=== PATIENT | male | born 1940 | race Caucasian/White ===

== ENCOUNTER 2024-05-26 17:17 | Inpatient (IN) | payer MEDICARE ==
--- NOTE | 2024-05-26 17:32 | ED ---
General Adult HPI - General Chief complaint: Neuro Symptoms/Deficit Stated complaint: stroke like symptoms Time Seen by Provider: 05/26/24 17:20 Source: patient, EMS, RN notes reviewed Mode of arrival: EMS Limitations: no limitations - History of Present Illness Initial comments: Patient is an 83-year-old male presenting to the emergency department with concerns for left-sided weakness. Onset of symptoms was 5 PM yesterday. Patient notices left leg dragging and is fallen approximately 5 or 6 times. Patient also noticed that his left arm is not quite doing what he wanted it to. No head injury. No loss of consciousness. No neck or back pain. No loss of sensation. No confusion or speech difficulty. - Related Data Home Medications Medication Instructions Recorded Confirmed No Known Home Medications 05/26/24 05/26/24 Allergies Allergy/AdvReac Type Severity Reaction Status Date / Time No Known Allergies Allergy Verified 05/26/24 18:51 Review of Systems ROS Statement: Those systems with pertinent positive or pertinent negative responses have been documented in the HPI. ROS Other: All systems not noted in ROS Statement are negative. Constitutional: Denies: fever Eyes: Denies: eye pain ENT: Denies: ear pain Respiratory: Denies: cough Cardiovascular: Denies: chest pain Gastrointestinal: Denies: abdominal pain Musculoskeletal: Denies: back pain Neurological: Reports: as per HPI, weakness. Denies: headache Past Medical History Past Medical History: No Reported History History of Any Multi-Drug Resistant Organisms: None Reported Past Surgical History: No Surgical Hx Reported Past Psychological History: No Psychological Hx Reported Smoking Status: Current every day smoker Past Alcohol Use History: None Reported Past Drug Use History: None Reported General Exam Limitations: no limitations General appearance: alert, in no apparent distress Head exam: Present: atraumatic Eye exam: Present: normal appearance, PERRL, EOMI ENT exam: Present: normal oropharynx Neck exam: Present: normal inspection Respiratory exam: Present: normal lung sounds bilaterally Cardiovascular Exam: Present: regular rate, normal rhythm GI/Abdominal exam: Present: soft. Absent: tenderness Extremities exam: Present: normal inspection Neurological exam: Present: alert, oriented X3, CN II-XII intact Expanded Neurological exam: Present: protecting the airway Patient oriented to: Present: person, place, time Speech: Present: fluid speech Cranial nerves: EOM's Intact: Normal Sensory exam: Upper Extremity Light Touch: Normal, Lower Extremity Light Touch: Normal Motor strength exam: RUE: 5, LUE: 4, RLE: 5, LLE: 4 Eye Response: (4) open spontaneously Motor Response: (6) obeys commands Verbal Response: (5) oriented Psychiatric exam: Present: normal affect, normal mood Skin exam: Present: abrasion Course Vital Signs 05/26/24 05/26/24 05/26/24 17:18 17:30 18:22 Temperature 98.4 F Pulse Rate 61 98 Respiratory 16 16 Rate Blood Pressure 188/114 198/84 160/68 O2 Sat by Pulse 98 97 Oximetry EKG Findings - EKG Results: EKG: interpreted by ERMD (Appearance of sinus rhythm with frequent PVCs. Septal Q waves.), normal axis, normal ST/T Medical Decision Making - Medical Decision Making Recommended tetanus however patient refuses. Consider CTA however patient is not a candidate for protocol secondary to symptoms greater than 24 hours Was pt. sent in by a medical professional or institution (, PA, BUSINESS MANAGEMENT PROFESSOR, urgent care, hospital, or halfway...) When possible be specific @ -No Did you speak to anyone other than the patient for history (EMS, parent, family, police, friend...)? What history was obtained from this source @ -No Did you review nursing and triage notes (agree or disagree)? Why? @ -I reviewed and agree with nursing and triage notes Were old charts reviewed (outside hosp., previous admission, EMS record, old EKG, old radiological studies, urgent care reports/EKG's, halfway records)? Report findings @ -No old charts were reviewed Differential Diagnosis (chest pain, altered mental status, abdominal pain women, abdominal pain men, vaginal bleeding, weakness, fever, dyspnea, syncope, headache, dizziness, GI bleed, back pain, seizure, CVA, palpatations, mental health, musculoskeletal)? @ -Differential Weakness: Hypoglycemia, shock, sepsis, hyponatremia, anemia, infection, NE, ETOH, adverse medicine reaction, overdose, stroke, this is not meant to be an all-inclusive list. EKG interpreted by me (3pts min.). @ -As above X-rays interpreted by me (1pt min.). @ -Chest x-ray shows no acute process CT interpreted by me (1pt min.). @ -CT scan of the brain without acute abnormality U/S interpreted by me (1pt. min.). @ -None done What testing was considered but not performed or refused? (CT, X-rays, U/S, labs)? Why? @ -None What meds were considered but not given or refused? Why? @ -Patient not a candidate for tenecteplase secondary to onset greater than 4.5 hours Did you discuss the management of the patient with other professionals (professionals i.e. , PA, BUSINESS MANAGEMENT PROFESSOR, lab, RT, psych nurse, pediatric social worker, maintenance and engineering manager, teacher, operations officer trust department, correctional case records supervisor)? Give summary @ -Case discussed with Dr. Qiu who will admit covering hospital call Was smoking cessation discussed for >3mins.? @ -No Was critical care preformed (if so, how long)? @ -No Were there social determinants of health that impacted care today? How? (Homelessness, low income, unemployed, alcoholism, drug addiction, transportation, low edu. Level, literacy, decrease access to med. care, [facility], rehab)? @ -No Was there de-escalation of care discussed even if they declined (Discuss DNR or withdrawal of care, Hospice)? DNR status @ -No What co-morbidities impacted this encounter? (DM, HTN, Smoking, COPD, CAD, Cancer, CVA, ARF, Chemo, Hep., AIDS, mental health diagnosis, sleep apnea, morbid obesity)? @ -None Was patient admitted / discharged? Hospital course, mention meds given and route, prescriptions, significant lab abnormalities, going to OR and other pertinent info. @ -Patient presents with left arm and leg weakness for [address] scan unremarkable. Concern for stroke. Patient will be admitted with neurology cons ult. Patient reevaluated. Patient and family updated. Admission orders written. Undiagnosed new problem with uncertain prognosis? @ -No Drug Therapy requiring intensive monitoring for toxicity (Heparin, Nitro, Insulin, Cardizem)? @ -No Were any procedures done? @ -No Diagnosis/symptom? @ -CVA Acute, or Chronic, or Acute on Chronic? @ -Acute Uncomplicated (without systemic symptoms) or Complicated (systemic symptoms)? @ -Default Side effects of treatment? @ -No Exacerbation, Progression, or Severe Exacerbation? @ -No Poses a threat to life or bodily function? How? (Chest pain, USA, NE, pneumonia, PE, COPD, DKA, ARF, appy, cholecystitis, CVA, Diverticulitis, Homicidal, Suicidal, threat to staff... and all critical care pts) @ -Threat to neurological function - Lab Data Result diagrams: 05/26/24 17:40 05/26/24 17:40 Lab Results 05/26/24 05/26/24 05/26/24 Range/Units 17:40 17:40 17:40 WBC 14.21 H (4.50-10.00) 10*3/uL RBC 4.52 (4.40-5.60) 10*6/uL Hgb 13.7 (13.0-17.0) g/dL Hct 41.1 (39.6-50.0) % MCV 90.9 (80.0-97.0) fL MCH 30.3 (27.0-32.0) pg MCHC 33.3 (32.0-37.0) g/dL Plt Count 287 (140-440) 10*3/uL MPV 9.3 L (9.5-12.2) fL Immature Gran % (Auto) 0.3 % Neutrophils % 76.8 % Lymphocytes % 14.2 % Monocytes % 8.0 % Eosinophils % 0.6 % Basophils % 0.1 % Immature Gran # 0.04 (0.00-0.04) 10*3/uL Neutrophils # 10.91 H (1.80-7.70) 10*3/uL Lymphocytes # 2.02 (0.90-5.00) 10*3/uL Monocytes # 1.14 H (0.20-1.00) 10*3/uL Eosinophils # 0.08 (0.04-0.35) 10*3/uL Basophils # 0.02 (0.00-0.10) 10*3/uL PT 10.3 (10.0-12.5) sec INR 0.9 (<1.2) APTT 23.2 (22.0-30.0) sec Sodium 136 L (137-145) mmol/L Potassium 4.5 (3.5-5.1) mmol/L Chloride 105 (98-107) mmol/L Carbon Dioxide 24 (22-30) mmol/L Anion Gap 7 mmol/L BUN 16 (9-20) mg/dL Creatinine 1.31 H (0.66-1.25) mg/dL Est GFR (CKD-EPI)AfAm 59 (>60 ml/min/1.73 sqM) Est GFR (CKD-EPI)NonAf 51 (>60 ml/min/1.73 sqM) Glucose 147 H (74-99) mg/dL Calcium 9.4 (8.4-10.2) mg/dL Total Bilirubin 0.7 (0.2-1.3) mg/dL AST 23 (17-59) U/L ALT 13 (4-49) U/L Alkaline Phosphatase 102 (38-126) U/L Creatine Kinase 123 (55-170) U/L Total Protein 7.2 (6.3-8.2) g/dL Albumin 4.2 (3.5-5.0) g/dL Disposition Clinical Impression: Cerebrovascular accident (CVA) Disposition: ADMITTED IP TO THIS HOSP Is patient prescribed a controlled substance at d/c from ED?: No Referrals: None,Stated [Primary Care Provider] - 1-2 days Time of Disposition: 19:39
[2024-05-26 17:46] LABS: Basophils # (A) 0.02 10*3/uL (0.00-0.10); Basophils % (A) 0.1 %; Eosinophils # (A) 0.08 10*3/uL (0.04-0.35); Eosinophils % (A) 0.6 %; HCT 41.1 % (39.6-50.0); HGB 13.7 g/dL (13.0-17.0); Lymphocytes # (A) 2.02 10*3/uL (0.90-5.00); Lymphocytes % (A) 14.2 %; MCH 30.3 pg (27.0-32.0); MCHC 33.3 g/dL (32.0-37.0); MCV 90.9 fL (80.0-97.0); Mean Platelet Volume 9.3 fL (9.5-12.2); Monocytes # (A) 1.14 10*3/uL (0.20-1.00); Neutrophils # (A) 10.91 10*3/uL (1.80-7.70); Neutrophils % (A) 76.8 %; Platelet Count 287 10*3/uL (140-440); RBC 4.52 10*6/uL (4.40-5.60); RDW 14.4 % (11.5-14.5); WBC 14.21 10*3/uL (4.50-10.00)
[2024-05-26 17:59] LABS: ALT 13 U/L (4-49); AST 23 U/L (17-59); African American GFR (CKD) 59 (>60 ml/min/1.73 sqM); Albumin 4.2 g/dL (3.5-5.0); Alkaline Phosphatase 102 U/L (38-126); Anion Gap 7 mmol/L; Blood Urea Nitrogen 16 mg/dL (9-20); Calcium 9.4 mg/dL (8.4-10.2); Carbon Dioxide 24 mmol/L (22-30); Chloride 105 mmol/L (98-107); Creatine Kinase 123 U/L (55-170); Glucose 147 mg/dL (74-99); Non-African American GFR(CKD) 51 (>60 ml/min/1.73 sqM); Potassium 4.5 mmol/L (3.5-5.1); Sodium 136 mmol/L (137-145); Total Bilirubin 0.7 mg/dL (0.2-1.3); Total Protein 7.2 g/dL (6.3-8.2)
[2024-05-26 18:01] LABS: INR 0.9 (<1.2); Partial Thromboplastin Time 23.2 sec (22.0-30.0); Prothrombin Time 10.3 sec (10.0-12.5)
--- NOTE | 2024-05-26 18:04 | XR ---
EXAMINATION TYPE: XR chest 2V DATE OF EXAM: 05/26/2024 5:59 PM COMPARISON: None TECHNIQUE: XR chest 2V Frontal and lateral views of the chest. CLINICAL INDICATION:Male, 83 years old with history of altered mental status; FINDINGS: Lungs/Pleura: There is no evidence of pleural effusion, focal consolidation, or pneumothorax. Chroni c senescent parenchymal change. Pulmonary vascularity: Unremarkable. Heart/mediastinum: Cardiomediastinal silhouette is unremarkable. Atherosclerotic calcifications are seen in the aorta. Musculoskeletal: No acute osseous pathology. IMPRESSION: No acute cardiopulmonary disease/process. [facility], , 05/26/2024 6:01 PM
--- NOTE | 2024-05-26 18:14 | CT ---
EXAMINATION TYPE: CT brain wo con CT DLP: 1156.8 mGycm, Automated exposure control for dose reduction was used. DATE OF EXAM: 05/26/2024 6:07 PM COMPARISON: None. CLINICAL INDICATION:Male, 83 years old with history of Neuro deficit, acute, stroke suspected, weakne ss, ams TECHNIQUE: Brain: Multiple axial CT images of the brain were obtained without IV contrast. . Coronal and sagitta l reformats reviewed. FINDINGS: Brain: Extra-axial spaces: No abnormal extra-axial fluid collections. Ventricular system: Within normal limits Cerebral parenchyma: Cerebral atrophy. No acute intraparenchymal hemorrhage or mass effect. The brito -white junction is well differentiated. Scattered hypoattenuating areas are seen within the periventr icular white matter. Cerebellum: Unremarkable. Mass effect: No evidence of midline shift. Intracranial vasculature: Atherosclerotic calcifications of the intracranial vessels. Soft tissues: Normal. Calvarium/osseous structures: No depressed skull fracture. Incidental incomplete fusion posterior arc h of C1. Paranasal sinuses and mastoid air cells: The mastoid air cells are clear. Minimal mucosal thickening of the ethmoid sinuses. Aplasia of the right frontal sinus. The remaining paranasal sinuses are clear . Visualized orbits: Orbital contents are intact. IMPRESSION: 1. No acute intracranial process. 2. Nonspecific white matter changes, likely secondary to chronic small vessel ischemic disease. [facility], , 05/26/2024 6:12 PM
[2024-05-26] MEDS: SODIUM CHLORIDE 0.9% 1,000 ML IV SCH (20:23)
[2024-05-26] MEDS: ASPIRIN 325 MG TAB PO STA (20:28)
--- NOTE | 2024-05-26 21:49 | US ---
EXAMINATION TYPE: US carotid duplex BILAT DATE OF EXAM: 05/26/2024 COMPARISON: NONE CLINICAL INDICATION: Male, 83 years old with history of Stenosis; stroke like symptoms. Dizziness. TECHNIQUE: Grayscale, color Doppler and spectral Doppler evaluation of the bilateral carotid systems and vertebral arteries. Indirect Doppler criteria was utilized. FINDINGS: Boat Carpenter Mechanic notes: Patient unable to lay flat due to pain in neck EXAM MEASUREMENTS: RIGHT: Peak Systolic Velocity (PSV) cm/sec ----- Right CCA: 111 ----- Right ICA: 107.0 ----- Right ECA: 119.0 ICA/CCA ratio: 1.0 RIGHT: End Diastole cm/sec ----- Right CCA: 16.3 ----- Right ICA: 29.9 ----- Right ECA: 9.9 LEFT: Peak Systolic Velocity (PSV) cm/sec ----- Left CCA: 97.4 ----- Left ICA: 147 ----- Left ECA: 97.6 ICA/CCA ratio: 1.5 LEFT: End Diastole cm/sec ----- Left CCA: 19.5 ----- Left ICA: 39.3 ----- Left ECA: 2.46 VERTEBRALS (direction of flow): Right Vertebral: Antegrade Left Vertebral: Antegrade Rhythm: Arrhythmia MANAGER CASINO NOTES: slightly limited due to tortuous, deep diving vessels. Plaque seen within bilatera l bulbs slightly elevated velocities seen within the left ICA Color Doppler imaging shows patency with blood flow throughout the carotid artery. Spectral waveforms are within normal limits. IMPRESSION: Scattered mild to moderate atherosclerotic changes at the bilateral bifurcations. Slightly elevated v elocities left ICA but without any hemodynamically significant internal carotid artery stenosis on ei ther side. Criteria for Assigning % of Stenosis / Diameter reduction (Estimation based on the indirect measurements of the internal carotid artery velocities (ICA PSV). 1. Normal (no stenosis)=ICA PSV < 180 cm/s: ratio < 2.0: ICA EDV<40 cm/s. 2. Less than 50% stenosis=ICA PSV < 180 cm/s: ratio < 2.0: ICA EDV<40 cm/s. 3. 50 to 69% stenosis=ICA PSV of 180 to 230 cm/s: ration 2.0 ? 4.0: ICA EDV 40-100 cm/s. PSV 125-180 cm/sec and ICA/CCA PSV Ratio ? 2.0 is also consistent with 50-69% stenosis 4. Greater than 70% stenosis to near occlusion= ICA PSV > 230 cm/s: ratio > 4.0: ICA EDV > 100 cm/s. 5. Near occlusion= ICA PSV velocities may be low or undetectable: variable ratio and ICA EDV. 6. Total occlusion=unable to detect flow. [facility], , 05/26/2024 9:47 PM
--- NOTE | 2024-05-27 01:09 | HP ---
HISTORY AND PHYSICAL HISTORY OF PRESENT ILLNESS: This is an 83-year-old white male, who comes to the emergency room with concerns of left-sided weakness. It started at 5:00 p.m. yesterday; both legs weak; he was dragging his left leg and falling 5 or 6 times and his left arm is not quite what it used to be also. Little bit weak. No confusion or speech abnormality. MEDICATIONS: Negative. ALLERGIES: Negative. REVIEW OF SYSTEMS: Otherwise 14-point review of systems negative. PAST MEDICAL HISTORY: None. SOCIAL HISTORY: Current everyday smoker. He had pneumonia recently about a month ago that he has been weak ever since. PHYSICAL EXAMINATION: GENERAL: No limitations. No acute distress. HEAD: Normocephalic, atraumatic. Pupils are equally, round, and reactive. NEUROLOGIC: Cranial nerves are intact. He has 4/5 strength in his left arm and his left leg. No tongue deviation. Wrinkling of the face is normal. He obeys commands. He is pleasant, and he is talkative in no acute distress. He can move his arm about 50% to 70% on his left side, same with the left leg. HEART: S1 and S2. He has PVCs on EKG with no ischemia. VITAL SIGNS: Blood pressure on admission was 188/114, O2 98, temp 98.4, pulse 61, respiratory rate 16. Consider CTA per the protocol. Carotid Doppler is negative. Echo is pending. White count 14.2 with a left shift. Possibly, he has pneumonia. He has wheezing in his lungs, [id number]. Sodium 136, potassium 4.5, BUN is 16, creatinine 1.31, glucose 147. Continue with current treatment. Prognosis is guarded. CTA of the chest for possible pneumonia. X-ray of the lumbar spine for leg weakness, ruling out stroke. Echo with bubble study is pending. MMODL / IJN: [id number] /
[2024-05-27 02:19] LABS: Appearance,Urine Clear (Clear); Bilirubin,Urine Negative (Negative); Blood,Urine Trace (Negative); Color,Urine Colorless; Glucose,Urine (UA) Negative (Negative); Ketones,Urine Negative (Negative); Leukocyte Esterase,Urine Negative (Negative); Nitrite,Urine Negative (Negative); PH, Urine 6.5 (5.0-8.0); Protein,Urine Negative (Negative); RBC,Urine 3 /hpf (0-5); Specific Gravity,Urine 1.008 (1.001-1.035); Urobilinogen,Urine <2.0 mg/dL (<2.0); WBC,Urine 1 /hpf (0-5)
--- NOTE | 2024-05-27 02:42 | CT ---
EXAM: CT Chest Without Intravenous Contrast CLINICAL HISTORY: ITS.REASON CT Reason: recent cap/wheezing TECHNIQUE: Axial computed tomography images of the chest without intravenous contrast. CTDI is 12.4 mGy and DLP is 527.5 mGy-cm. This CT exam was performed using one or more of the following dose reduction techniques: automated exposure control, adjustment of the mA and/or kV according to patient size, and/or use of iterative reconstruction technique. COMPARISON: No relevant prior studies available. FINDINGS: Lungs: Mild atelectasis at the lung bases. Pleural space: Unremarkable. No pneumothorax. No significant effusion. Heart: Unremarkable. No cardiomegaly. No significant pericardial effusion. No significant coronary artery calcifications. Bones/joints: Degenerative changes of the spine. No acute fracture. No dislocation. Soft tissues: Unremarkable. Vasculature: Atherosclerotic changes of the aorta. No thoracic aortic aneurysm. Lymph nodes: Unremarkable. No enlarged lymph nodes. IMPRESSION: No acute findings in the chest.
--- NOTE | 2024-05-27 07:35 | XR ---
EXAMINATION TYPE: XR lumbar spine 3V DATE OF EXAM: 05/27/2024 12:28 AM COMPARISON: None CLINICAL INDICATION: Male, 83 years old with history of leg weakness; PHH, pain FINDINGS: Hypertrophic facet arthropathy. There appears to be a grade 2 or nearly grade 2 anterolisthesis at L4 -L5. Facet arthropathy throughout. Degenerative disc disease with vacuum at L4-L5. Vertebral body hei ghts are preserved. IMPRESSION: 1. A grade 2 or nearly grade 2 anterolisthesis at L4-L5 may be due to hypertrophic facet arthropathy or underlying pars defects. 2. Moderate degenerative disc disease L4-L5. Facet arthropathy throughout. [facility], Workstation: [facility], 05/27/2024 7:32 AM
[2024-05-27 08:10] LABS: Chol/HDL Ratio 5.75 Ratio; LDL Cholesterol,Calculated 152.6 mg/dL (0.0-131.0)
[2024-05-27] MEDS: ASPIRIN 325 MG TAB PO SCH (10:23)
[2024-05-27 10:29] LABS: Basophils # (A) 0.02 10*3/uL (0.00-0.10); Basophils % (A) 0.1 %; Eosinophils # (A) 0.13 10*3/uL (0.04-0.35); Eosinophils % (A) 0.9 %; HCT 40.7 % (39.6-50.0); HGB 13.7 g/dL (13.0-17.0); Lymphocytes # (A) 2.37 10*3/uL (0.90-5.00); Lymphocytes % (A) 16.8 %; MCH 30.7 pg (27.0-32.0); MCHC 33.7 g/dL (32.0-37.0); MCV 91.3 fL (80.0-97.0); Mean Platelet Volume 9.2 fL (9.5-12.2); Monocytes # (A) 1.26 10*3/uL (0.20-1.00); Monocytes % (A) 8.9 %; Neutrophils # (A) 10.28 10*3/uL (1.80-7.70); Neutrophils % (A) 72.9 %; Platelet Count 297 10*3/uL (140-440); RBC 4.46 10*6/uL (4.40-5.60); RDW 14.3 % (11.5-14.5); WBC 14.11 10*3/uL (4.50-10.00)
[2024-05-27 10:52] LABS: ALT 12 U/L (4-49); AST 19 U/L (17-59); African American GFR (CKD) 66 (>60 ml/min/1.73 sqM); Albumin 3.5 g/dL (3.5-5.0); Albumin/Globulin Ratio 1.2; Alkaline Phosphatase 98 U/L (38-126); Anion Gap 5 mmol/L; Blood Urea Nitrogen 13 mg/dL (9-20); Calcium 9.3 mg/dL (8.4-10.2); Carbon Dioxide 25 mmol/L (22-30); Chloride 106 mmol/L (98-107); Globulin 2.9 g/dL; Glucose 118 mg/dL (74-99); Magnesium 1.8 mg/dL (1.6-2.3); Non-African American GFR(CKD) 57 (>60 ml/min/1.73 sqM); Potassium 4.4 mmol/L (3.5-5.1); Sodium 136 mmol/L (137-145); Total Bilirubin 0.9 mg/dL (0.2-1.3); Total Protein 6.4 g/dL (6.3-8.2)
--- NOTE | 2024-05-27 11:21 | P.CRDCN ---
History of Present Illness Consult date: 05/27/24 Reason for Consult (text): Arrhythmia History of present illness: This is an 83-year-old male patient with no previous cardiac history and does not follow with a business objects report developer. He has a past medical history of tobacco use and dependence. We have been asked to evaluate the patient for arrhythmia. Patient presented to the hospital because of his left foot weakness and he states he kept falling down and falling to the left. He also states his left hand was not working correctly for him. He denies previous history of a stroke. He denies chest pain or shortness of breath. He is a smoker of 1 pack/day. He denies alcohol use. Blood pressure 158/81, heart rate 64, pulse ox 97% on room air. Discussed smoking cessation with the patient. -EKG: Sinus rhythm with PVCs versus aberrant conduction -Chest x-ray: No acute process. -CT brain: No acute intracranial process. Nonspecific white matter changes secondary to chronic small vessel ischemic disease. -Carotid duplex: Scattered mild to moderate atherosclerotic changes without hemo dynamically significant WILLARD. -Lumbar spine. Grade 2 anterior listhesis L4-L5. Moderate degenerative disc disease L4-5. -CT chest: No acute findings. -Laboratory studies: WBC 14.1, hemoglobin 13.7, sodium 136, potassium 4.4, BUN 13 creatinine 1.19. Triglycerides 158, cholesterol 223, LDL 152. HDL 38. -Home cardiac medications: None Review Of Systems: At the time of my exam: CONSTITUTIONAL: Denies fever or chills. HEENT: Denies blurred vision, vision changes, or eye pain. Denies hemoptysis CARDIOVASCULAR: Denies chest pain. Denies orthopnea. Denies PND. Denies palpitations RESPIRATORY: Denies shortness of breath. GASTROINTESTINAL: Denies abdominal pain. Denies nausea or vomiting. HEMATOLOGIC: Denies bleeding disorders. GENITOURINARY: Denies any blood in urine. SKIN: Denies puritis. Denies rash. Physical examination: Gen: This is an 83-year-old male in no acute distress. VS: reviewed HEENT: Head is atraumatic, normocephalic. Pupils equal, round. Sclerae is anicteric. NECK: Supple. No JVD. LUNGS: Clear to auscultation. No wheezes or rhonchi. No intercostal retractions. HEART: Regular rate and rhythm. No murmur. ABDOMEN: Soft No tenderness. EXTREMITIES: No pedal edema. No calf tenderness. NEUROLOGICAL: Patient is awake, alert and oriented x3. Assessment: Left sided weakness most likely due to acute ischemic stroke Hyperlipidemia Tobacco use and dependence Plan: Patient has been started on aspirin 325 mg daily Discontinue IV fluids Start patient on a atorvastatin 40 mg at bedtime Obtain A1c, BNP Obtain 2-D echocardiogram and Doppler study to assess cardiac structure and function Further recommendations to follow based upon clinical course Smoking cessation. Patient will be provided the [place] quit line information at discharge. Thank you kindly for this consultation. Nurse practitioner note has been reviewed, I agree with documented findings and plan of care. Patient was seen and examined. Past Medical History Past Medical History: Pneumonia History of Any Multi-Drug Resistant Organisms: None Reported Past Surgical History: No Surgical Hx Reported Past Psychological History: No Psychological Hx Reported Smoking Status: Current every day smoker Past Alcohol Use History: None Reported Additional Past Alcohol Use History / Comment(s): Smokes 1ppd Past Drug Use History: None Reported - Past Family History Mother Family Medical History: No Reported History Additional Family Medical History / Comment(s): at age 99. Father Family Medical History: Diabetes Mellitus Additional Family Medical History / Comment(s): at age 38. Sister(s) Family Medical History: Thyroid Disorder Daughter(s) Family Medical History: Deep Vein Thrombosis (DVT) Medications and Allergies Home Medications Medication Instructions Recorded Confirmed Type No Known Home Medications 05/26/24 05/26/24 History Allergies Allergy/AdvReac Type Severity Reaction Status Date / Time No Known Allergies Allergy Verified 05/26/24 18:51 Physical Exam Vitals: Vital Signs Temp Pulse Pulse Resp BP BP Pulse Ox 05/27/24 07:00 98.2 F 64 16 158/81 97 05/27/24 06:32 165/76 05/27/24 02:06 98.0 F 89 18 167/79 99 05/26/24 23:22 98.3 F 83 19 134/86 97 05/26/24 22:59 87 17 122/89 96 05/26/24 20:35 98.5 F 100 13 122/66 98 05/26/24 18:22 98 16 160/68 97 05/26/24 17:30 198/84 05/26/24 17:18 98.4 F 61 16 188/114 98 Intake and Output 05/26/24 05/27/24 05/27/24 22:59 06:59 14:59 Output Total 575 Balance -575 Output: Urine 575 Other: Voiding Method Urinal # Voids 2 Weight 99.79 kg 95.9 kg Results 05/27/24 10:18 05/27/24 10:18 Cardiac Enzymes 05/26/24 Range/Units 17:40 AST 23 (17-59) U/L Coagulation 05/26/24 Range/Units 17:40 PT 10.3 (10.0-12.5) sec APTT 23.2 (22.0-30.0) sec Lipids 05/26/24 Range/Units 17:40 Triglycerides 158.00 H (0.00-149.00) mg/dL Cholesterol 223.00 H (0.00-200.00) mg/dL HDL Cholesterol 38.80 L (40.00-60.00) mg/dL Cholesterol/HDL Ratio 5.75 Ratio CBC 05/26/24 Range/Units 17:40 WBC 14.21 H (4.50-10.00) 10*3/uL RBC 4.52 (4.40-5.60) 10*6/uL Hgb 13.7 (13.0-17.0) g/dL Hct 41.1 (39.6-50.0) % Plt Count 287 (140-440) 10*3/uL Comprehensive Metabolic Panel 05/26/24 Range/Units 17:40 Sodium 136 L (137-145) mmol/L Potassium 4.5 (3.5-5.1) mmol/L Chloride 105 (98-107) mmol/L Carbon Dioxide 24 (22-30) mmol/L BUN 16 (9-20) mg/dL Creatinine 1.31 H (0.66-1.25) mg/dL Glucose 147 H (74-99) mg/dL Calcium 9.4 (8.4-10.2) mg/dL AST 23 (17-59) U/L ALT 13 (4-49) U/L Alkaline Phosphatase 102 (38-126) U/L Total Protein 7.2 (6.3-8.2) g/dL Albumin 4.2 (3.5-5.0) g/dL Current Medications Generic Name Dose Route Start Last Admin Trade Name Norris PRN Reason Stop Dose Admin Aspirin 325 mg 05/27/24 09:00 Aspirin 325 Mg Tab PO DAILY ELZA Sodium Chloride 1,000 mls @ 75 mls/hr 05/26/24 19:45 05/26/24 20:23 Saline 0.9% IV 100 mls/hr .[id number] ELZA Administration Ceftriaxone Sodium 1 gm/ 50 mls @ 100 mls/hr 05/26/24 23:45 05/27/24 08:47 Sodium Chloride IVPB 100 mls/hr Q24HR ELZA Administration Protocol Intake and Output 05/26/24 05/27/24 05/27/24 22:59 06:59 14:59 Output Total 575 Balance -575 Output: Urine 575 Other: Voiding Method Urinal # Voids 2 Weight 99.79 kg 95.9 kg 05/26/24 17:40 05/26/24 17:40
[2024-05-27] MEDS: CLOPIDOGREL 75 MG TAB PO SCH (19:12)
[2024-05-27] MEDS: ATORVASTATIN 40 MG TAB PO SCH (21:59)
[2024-05-27] MEDS: MELATONIN 5 MG TABLET PO PRN (21:59)
--- NOTE | 2024-05-28 06:11 | P.PN ---
Subjective Progress Note Date: 05/27/[address] Vinayak Qiu This is a pleasant 83-year-old male who presented to the hospital with concerns of left-sided weakness and dragging the left leg and falling frequently and family with concerns of possible stroke. Patient did undergo CT of the brain showing no acute findings and neurology is consulted and pending patient also underwent carotid Doppler imaging showing scattered mild to moderate atherosclerotic changes at the bilateral bifurcations with slightly elevated velocities of the left ICA but without any significant internal carotid artery stenosis. Patient does not have a primary care provider in the outpatient setting and does not chronically take any medications. Patient denies alcohol or illicit drug use and does report to smoking tobacco at times. Patient lives alone and will have PT/OT therapy evaluate the patient. Review of systems: Constitutional: No reports of fatigue, fever, or chills Cardiovascular: No reports of chest pain or palpitations Respiratory: No reports of shortness of breath or cough GI: reports of nausea, no reports of of vomiting, : No reports of dysuria or retention Neurovascular: reports of generalized weakness, continued left-sided weakness mostly of the lower extremity All medications have been reviewed PHYSICAL EXAMINATION: GENERAL: The patient is alert and oriented x4, Well developed, thin built, elderly appearing HEENT: Pupils are round and equally reacting to light. EOMI. no scleral icterus. No conjunctival pallor. Normocephalic, atraumatic. No pharyngeal erythema. No thyromegaly. CARDIOVASCULAR: S1 and S2 muffled PULMONARY: diminished breath sounds bilaterally with no wheezing or rhonchi noted. ABDOMEN: soft. Nontender on exam. Thin. non-distended, normoactive bowel sounds. No palpable organomegaly. MUSCULOSKELETAL: No joint swelling or deformity. EXTREMITIES: No cyanosis, clubbing, or pedal edema. NEUROLOGICAL: Gross neurological examination did not reveal any focal deficits. Diffuse weakness left side manager trade marketing strength 4/5, lower extremity strength 45 on the left SKIN: No rashes. Assessment: Left side weakness with unsteady gait and falls, concerns for CVA Continued ongoing tobacco Hyperlipidemia GI prophylaxis DVT prophylaxis No code Plan: Patient mated with left-sided weakness concerns for CVA. CT brain was negative for acute process and awaiting neurology consultation and appreciate input and recommendations as patient will likely need an MRI. Patient has no primary care provider and denies any significant past medical history and has not seen a doctor in quite some time Patient reports he smokes and recommend complete tobacco cessation Recommend statin therapy PT/OT therapy to evaluate the patient Patient lives alone and family is concerned Patient reports to feeling fine and would like to go home although agreeable to wait for neurology evaluation. Family at the bedside with questions and concerns that were answered to the best of our ability Overall prognosis is guarded The impression and plan of care has been dictated by Sharri Washington, nurse practitioner as directed. Dr. Marco MD I have performed a history and examination and MDM of this patient, discussed the same with the dictator, and agree with the dictator's assessment and plan as written ,documented as a scribe. Based on total visit time, I have performed more than 50% of the visit. Any additional findings or plans will be noted. Objective - Vital Signs Vital signs: Vital Signs Temp 97.7 F 05/27/24 09:42 Pulse 83 05/27/24 09:42 Resp 16 05/27/24 09:42 BP 158/79 05/27/24 09:42 Pulse Ox 97 05/27/24 07:00 FiO2 Intake & Output 05/26/24 05/27/24 05/27/24 18:59 06:59 18:59 Output Total 575 Balance -575 Weight 99.79 kg 95.9 kg Output: Urine 575 Other: Voiding Method Urinal # Voids 2 - Labs CBC & Chem 7: 05/27/24 10:18 05/27/24 10:18 Labs: Abnormal Lab Results - Last 24 Hours (Table) 05/26/24 05/26/24 05/26/24 Range/Units 17:40 17:40 17:40 WBC 14.21 H (4.50-10.00) 10*3/uL MPV 9.3 L (9.5-12.2) fL Neutrophils # 10.91 H (1.80-7.70) 10*3/uL Monocytes # 1.14 H (0.20-1.00) 10*3/uL Sodium 136 L (137-145) mmol/L Creatinine 1.31 H (0.66-1.25) mg/dL Glucose 147 H (74-99) mg/dL Triglycerides 158.00 H (0.00-149.00) mg/dL Cholesterol 223.00 H (0.00-200.00) mg/dL LDL Cholesterol, Calc 152.6 H (0.0-131.0) mg/dL HDL Cholesterol 38.80 L (40.00-60.00) mg/dL Urine Blood (Negative) 05/27/24 Range/Units 02:06 WBC (4.50-10.00) 10*3/uL MPV (9.5-12.2) fL Neutrophils # (1.80-7.70) 10*3/uL Monocytes # (0.20-1.00) 10*3/uL Sodium (137-145) mmol/L Creatinine (0.66-1.25) mg/dL Glucose (74-99) mg/dL Triglycerides (0.00-149.00) mg/dL Cholesterol (0.00-200.00) mg/dL LDL Cholesterol, Calc (0.0-131.0) mg/dL HDL Cholesterol (40.00-60.00) mg/dL Urine Blood Trace H (Negative)
--- NOTE | 2024-05-28 07:56 | P.CNNES ---
History of Present Illness Consult date: 05/27/24 Requesting physician: Spike Gustafson Reason for Consult: CVA History of Present Illness: Patient is a 83-year-old right-handed male came to the hospital by ambulance yesterday at 5:15 PM for strokelike symptoms. Patient's daughters were present at the bedside and all of them provided the history. Patient is very active, works as a construction. Patient's symptoms started on Friday, 2 days prior to arrival to the ER. He lives in a home, where he has to take 15 steps. While going up steps, he was dragging his left leg on the steps. His left leg was slower and his left arm. As a result he has felt about 6 times, and one of them he fell on the left and hit his left shoulder against the door wall. He did not hit his head or hurt himself significantly otherwise. Patient denied any slurred speech and a droopy face any headache. No visual disturbance. His left arm feels weak, like "kind has to tell what to do with the left arm". No previous history of strokes or TIA. As per EMS flowsheet when they arrived, he was in a seated position accompanied by family in some distress and he makes eye contact. Patient was alert x 4 with chief complaints of weakness possible CVA. Around 5 PM, he noted some left- sided weakness and he thought it was due to to overactivity. The patient was noted to experience at least 5 falls today with a minor skin tear to the left forearm. No head or neck or back pain. No loss of consciousness. Not on anticoagulants. Patient was noted to have unequal machine heel seat fitter strength to the upper left extremity also noted left arm drift and left lower extremity weakness with drift. Patient's vitals at the scene was blood pressure 166/82, pulse rate 117 respiration 18 saturation 95% blood sugar 153. Blood pressure on arrival was 188/114, which came down to 198/84. Patient has been afebrile. Blood test shows WBC 14.21 hemoglobin and platelets are normal. PT PTT normal, sodium 136 potassium 4.5 BUN 16 creatinine 1.31. UA is negative. Hepatic panel normal. EKG showed sinus tachycardia with frequent ventricular premature complexes. Chest x-ray showed no acute process. CT head revealed no acute intracranial process. Nonspecific white matter changes, likely secondary to chronic small vessel ischemic disease. I personally reviewed CT head, agree with the findings. CT chest showed no acute findings. X-ray of the lumbar spine showed grade 2 or nearly grade 2 anterolisthesis at L4-5 may be due to hypertrophic facet arthropathy or underlying pars defects. Moderate degenerative disc disease L4-L5. Facet arthropathy throughout. Home medications include none. Does not take any antiplatelet medication. Patient has smoked 1 pack per day for 65 years. Denies any alcohol use. Denies hypertension or diabetes. Patient's daughter believes that he is doing much better today as compared to yesterday. Review of Systems All pertinent positive and negative review of systems mentioned in the HPI, otherwise unremarkable. Patient does appear slightly short of breath going on for last 1 month. Past Medical History Past Medical History: Pneumonia History of Any Multi-Drug Resistant Organisms: None Reported Past Surgical History: No Surgical Hx Reported Past Psychological History: No Psychological Hx Reported Smoking Status: Current every day smoker Past Alcohol Use History: None Reported Additional Past Alcohol Use History / Comment(s): Smokes 1ppd Past Drug Use History: None Reported - Past Family History Mother Family Medical History: No Reported History Additional Family Medical History / Comment(s): at age 99. Father Family Medical History: Diabetes Mellitus Additional Family Medical History / Comment(s): at age 38. Sister(s) Family Medical History: Thyroid Disorder Daughter(s) Family Medical History: Deep Vein Thrombosis (DVT) Medications and Allergies Home Medications Medication Instructions Recorded Confirmed Type No Known Home Medications 05/26/24 05/26/24 History Allergies Allergy/AdvReac Type Severity Reaction Status Date / Time No Known Allergies Allergy Verified 05/26/24 18:51 Physical Examination - Vital Signs Vital Signs: Vital Signs Temp Pulse Pulse Resp BP BP Pulse Ox 05/27/24 09:42 97.7 F 83 16 158/79 05/27/24 07:00 98.2 F 64 16 158/81 97 05/27/24 06:32 165/76 05/27/24 02:06 98.0 F 89 18 167/79 99 05/26/24 23:22 98.3 F 83 19 134/86 97 05/26/24 22:59 87 17 122/89 96 05/26/24 20:35 98.5 F 100 13 122/66 98 05/26/24 18:22 98 16 160/68 97 05/26/24 17:30 198/84 05/26/24 17:18 98.4 F 61 16 188/114 98 Intake and Output 05/26/24 05/27/24 05/27/24 22:59 06:59 14:59 Output Total 575 Balance -575 Output: Urine 575 Other: Voiding Method Urinal # Voids 2 Weight 99.79 kg 95.9 kg Patient is an elderly male very pleasant in no acute distress. Patient is alert awake oriented to time place and person. Speech and language functions are normal. Patient can name and repeat very well. No aphasia or dysarthria. Attention, concentration and fund of knowledge is adequate. On cranial nerve examination, pupils are equal, round and reacting to light, visual arechiga are full on confrontation, with no neglect on double simultaneous stimulation. Extraocular muscles are intact with no nystagmus. Face is symmetric, tongue protrudes to the midline. Palatal elevation and sensation normal, hearing and shoulder shrug normal, facial sensation normal. On muscle strength testing, there is a left pronator drift, about 10 and the strength is normal in arms and legs distally and proximally, except left interossei which is 4-and left deltoid, which is weak from the fall. There is no leg drift. The strength of the legs are normal. Deep tendon reflexes are symmetric 1+ at the biceps, 1+ brachioradialis, 2 at the knees, trace ankles and plantar is downgoing on the right, upgoing on the left. Sensory to touch is equal with no neglect on double simultaneous stimulation. Cerebellar function showed no ataxia for [id number] testing, although he was slow on performing this task the left arm. No ataxia for [id number] testing on either side. Finger tapping is significantly decreased on the left. Tone is normal and bulk of muscles decrease in the bilateral first dorsal interosseous muscles. Gait deferred.. On general examination, there is no carotid bruit or murmur, S1-S2 audible. Chest is clear on consultation. Abdomen is soft nontender. No organomegaly, bowel sounds present. Peripheral pulses are present. No peripheral edema. Results - Laboratory Findings CBC and BMP: 05/27/24 10:18 05/27/24 10:18 Abnormal Lab Findings: Abnormal Labs 05/26/24 05/26/24 05/26/24 17:40 17:40 17:40 WBC 14.21 H MPV 9.3 L Immature Gran # Neutrophils # 10.91 H Monocytes # 1.14 H Sodium 136 L Creatinine 1.31 H Glucose 147 H Triglycerides 158.00 H Cholesterol 223.00 H LDL Cholesterol, Calc 152.6 H HDL Cholesterol 38.80 L Urine Blood 05/27/24 05/27/24 05/27/24 02:06 10:18 10:18 WBC 14.11 H MPV 9.2 L Immature Gran # 0.05 H Neutrophils # 10.28 H Monocytes # 1.26 H Sodium 136 L Creatinine Glucose 118 H Triglycerides Cholesterol LDL Cholesterol, Calc HDL Cholesterol Urine Blood Trace H Assessment and Plan Assessment: * Probable acute ischemic stroke with mild left arm weakness. * Recurrent falls in last 48 hours, likely due to above. * Hyperlipidemia * Hypertension * Tobacco use Plan: Patient was not a candidate for TNK, as his symptoms have been present for last 48 hours. MRI of the brain without contrast, evaluate for acute CVA. We will also check MRI of the cervical spine, to rule out spinal stenosis. 2-D echo with bubble study to rule out PFO Carotid Doppler, revealed scattered mild to moderate atherosclerotic changes at the bilateral bifurcations. Slightly elevated velocities left ICA but without any hemodynamically significant stenosis on either side. Antegrade flow in both vertebral arteries. Fasting a.m. lipid panel cholesterol 223, LDL 152, HDL 38, triglycerides 158. Patient to be started on Lipitor 40 mg daily. Hemoglobin A1c Permissive hypertension for next 24-48 hours Start aspirin 325 mg daily. Patient is doing already better as compared to yesterday. Neuro checks every 4 hours. Telemetry monitoring rule out any arrhythmia PT, OT, speech therapy DVT prophylaxis: Heparin 5000 units subcu every 8 hours Recommend complete tobacco cessation. Neurology will continue to follow. Thank you for the consult.
[2024-05-28 08:20] LABS: HCT 38.8 % (39.6-50.0); HGB 12.7 g/dL (13.0-17.0); MCHC 32.7 g/dL (32.0-37.0); MCV 91.5 FL (80.0-97.0); Mean Platelet Volume 9.9 FL (9.5-12.2); NRBC Per 100 WBC 0 X 10*3/uL (0.00-0.01); Platelet Count 287 X 10*3/uL (140-440); RBC 4.24 X 10*6/uL (4.40-5.60); RDW 14.5 % (11.5-14.5); WBC 14.96 X 10*3/uL (4.50-10.00)
[2024-05-28 08:30] LABS: BUN/Creat Ratio 11.25 Ratio (12.00-20.00); Blood Urea Nitrogen 13.5 mg/dL (9.0-27.0); Calcium 8.7 mg/dL (8.7-10.3); Carbon Dioxide 22.1 mmol/L (21.6-31.8); Chloride 106 mmol/L (96-109); Glucose 125 mg/dL (70-110); Potassium 4.3 mmol/L (3.5-5.5); Sodium 136 mmol/L (135-145)
[2024-05-28] MEDS: HEPARIN SODIUM,PORCINE 5,000 UNIT/ML 1 ML VIAL SQ SCH (08:43)
[2024-05-28 09:07] LABS: Basophils # (A) 0.03 X 10*3/uL (0.00-0.10); Basophils % (A) 0.2 %; Eosinophils # (A) 0.14 X 10*3/uL (0.04-0.35); Eosinophils % (A) 0.9 %; Lymphocytes # (A) 2.66 X 10*3/uL (0.90-5.00); Lymphocytes % (A) 17.8 %; Monocytes # (A) 1.59 X 10*3/uL (0.20-1.00); Monocytes % (A) 10.6 %; Neutrophils # (A) 10.47 X 10*3/uL (1.80-7.70)
--- NOTE | 2024-05-28 11:05 | CA ---
Transthoracic Echo Report Name: Ganesh James Age: 83 Gender: M : 1940 Exam Date: 05/27/2024 13:26 Exam Location: [place] [facility] [facility] Ht (in): 73 Wt (lb): 220 Ordering Physician: Vinayak Qiu MD Attending/Referring Phys: Director Of Donor Relations Jenni Isaac RDCS Procedure CPT: Indications: cva/bubble study Cardiac Hx: Technical Quality: Poor, Technically difficult study Contrast 1: Definity Total Dose (mL): 2 Contrast 2: Total Dose (mL): MEASUREMENTS (Male / Female) Normal Values 2D ECHO LV Diastolic Diameter PLAX 6.3 cm 4.2 - 5.9 / 3.9 - 5.3 cm LV Systolic Diameter PLAX 4.8 cm IVS Diastolic Thickness 0.8 cm 0.6 - 1.0 / 0.6 - 0.9 cm LVPW Diastolic Thickness 0.9 cm 0.6 - 1.0 / 0.6 - 0.9 cm LV Relative Wall Thickness 0.3 RV Internal Dim ED PLAX 1.5 cm LVOT Diameter 2.2 cm LA Systolic Diameter LX 3.3 cm 3.0 - 4.0 / 2.7 - 3.8 cm DOPPLER AV Peak Velocity 137.5 cm/s AV Peak Gradient 7.6 mmHg AV Mean Velocity 100.9 cm/s AV Mean Gradient 4.5 mmHg AV Velocity Time Integral 26.5 cm LVOT Peak Velocity 91.0 cm/s LVOT Peak Gradient 3.3 mmHg LVOT Velocity Time Integral 21.6 cm LVOT Stroke Volume 84.1 cm??? LVOT Stroke Volume Index 37.5 ml/m??? LVOT Cardiac Index 3016.2 cm???/min???m??? AV Area Cont Eq vti 3.2 cm??? AV Area Cont Eq pk 2.6 cm??? MV Area PHT 2.2 cm??? Mitral E Point Velocity 59.5 cm/s Mitral A Point Velocity 111.0 cm/s Mitral E to A Ratio 0.5 MV Deceleration Time 350.3 ms TR Peak Velocity 273.5 cm/s TR Peak Gradient 29.9 mmHg Right Ventricular Systolic Press 33.4 mmHg FINDINGS Left Ventricle Left ventricular ejection fraction is estimated at 40-45%. Mildly increased left ventricular diastolic diameter. Left ventricular cavity size normal. Moderately reduced global left ventricular systolic function. Basal inferior wall hypokinesia Right Ventricle Mild right ventricular dilatation. Right ventricular systolic pressure within normal limits. Right Atrium Mild right atrial dilatation. Left Atrium Mild left atrial dilatation. Mitral Valve Structurally normal mitral valve. Trace to mild mitral regurgitation. No mitral stenosis. Aortic Valve Trileaflet aortic valve. No aortic valve stenosis or regurgitation. Tricuspid Valve Structurally normal tricuspid valve. Mild tricuspid regurgitation. No tricuspid stenosis. Pulmonic Valve Structurally normal pulmonic valve. Trace pulmonic regurgitation. No pulmonic stenosis. Pericardium No pericardial or pleural effusion. Aorta Mild aortic dilatation at the level of the sinuses of valsalva (root), 4.0cm. CONCLUSIONS LVEF 40 to 45% Basal inferior wall hypokinesia Mild biatrial dilatation Mild RV dilatation No significant valvular dysfunction Previewed by: Dr Rene iKrby (Electronically Signed) Final Date: 28 May 2024 11:04
--- NOTE | 2024-05-28 12:27 | P.PN ---
Subjective Progress Note Date: 05/28/24 Reason for Consult (text): Arrhythmia History of present illness: This is an 83-year-old male patient with no previous cardiac history and does not follow with a [employer]. He has a past medical history of tobacco use and dependence. We have been asked to evaluate the patient for arrhythmia. Patient presented to the hospital because of his left foot weakness and he states he kept falling down and falling to the left. He also states his left hillman nd was not working correctly for him. He denies previous history of a stroke. He denies chest pain or shortness of breath. He is a smoker of 1 pack/day. He denies alcohol use. Blood pressure 158/81, heart rate 64, pulse ox 97% on room air. Discussed smoking cessation with the patient. -EKG: Sinus rhythm with PVCs versus aberrant conduction -Chest x-ray: No acute process. -CT brain: No acute intracranial process. Nonspecific white matter changes secondary to chronic small vessel ischemic disease. -Carotid duplex: Scattered mild to moderate atherosclerotic changes without hemodynamically significant WILLARD. -Lumbar spine. Grade 2 anterior listhesis L4-L5. Moderate degenerative disc disease L4-5. -CT chest: No acute findings. -Laboratory studies: WBC 14.1, hemoglobin 13.7, sodium 136, potassium 4.4, BUN 13 creatinine 1.19. Triglycerides 158, cholesterol 223, LDL 152. HDL 38. -Home cardiac medications: None 05/28 Patient seen and examined. Patient is scheduled for MRI/MRA of the brain today. Blood pressure 146/88, heart rate 85, pulse ox 97% on room air. Telemetry reviewed and has been sinus rhythm. No arrhythmias noted. Echocardiogram reveals EF of 40 to 45%, basal inferior wall hypokinesia, mild biatrial dilatation, mild RV dilatation, no significant valvular dysfunction.. Repeat blood work reveals WBC 14.9, hemoglobin 12.7. Electrolytes are normal, creatinine 1.2. BNP 419. A1c is pending. Physical examination: Gen: This is an 83-year-old male in no acute distress. VS: reviewed HEENT: Head is atraumatic, normocephalic. Pupils equal, round. Sclerae is anicte mikala. NECK: Supple. No JVD. LUNGS: Clear to auscultation. No wheezes or rhonchi. No intercostal re tractions. HEART: Regular rate and rhythm. No murmur. ABDOMEN: Soft No tenderness. EXTREMITIES: No pedal edema. No calf tenderness. NEUROLOGICAL: Patient is awake, alert and oriented x3. Assessment: Left sided weakness most likely due to acute ischemic stroke Hyperlipidemia Tobacco use and dependence Plan: Patient has been started on aspirin 325 mg daily Continue atorvastatin 40 mg at bedtime Obtain A1c Smoking cessation. Patient will be provided the [employer] quit line information at discharge. No further cardiac workup at this time Cardiology will sign off this case and follow on an as-needed basis. Please reconsult for any new concerns. Patient may follow-up in the office in one to [address] Kirby and plan for outpatient stress test. Nurse practitioner note has been reviewed, I agree with documented findings and plan of care. Patient was seen and examined. Objective - Vital Signs Vital signs: Vital Signs Temp 97.8 F 05/28/24 07:00 Pulse 85 05/28/24 07:00 Resp 15 05/28/24 07:00 BP 146/88 05/28/24 07:00 Pulse Ox 97 05/28/24 07:00 FiO2 Intake & Output 05/27/24 05/28/24 05/28/24 18:59 06:59 18:59 Output Total 300 Balance -300 Output: Urine 300 Other: Voiding Method Toilet Urinal Urinal # Voids 4 2 - Labs CBC & Chem 7: 05/28/24 04:14 05/28/24 04:14 Labs: Abnormal Lab Results - Last 24 Hours (Table) 05/27/24 05/27/24 05/28/24 Range/Units 10:18 10:18 04:14 WBC 14.11 H 14.96 H (4.50-10.00) 10*3/uL RBC 4.24 L (4.40-5.60) X 10*6/uL Hgb 12.7 L (13.0-17.0) g/dL Hct 38.8 L (39.6-50.0) % MPV 9.2 L (9.5-12.2) fL Immature Gran # 0.05 H 0.07 H (0.00-0.04) 10*3/uL Neutrophils # 10.28 H 10.47 H (1.80-7.70) 10*3/uL Monocytes # 1.26 H 1.59 H (0.20-1.00) 10*3/uL Sodium 136 L (137-145) mmol/L BUN/Creatinine Ratio (12.00-20.00) Ratio Glucose 118 H (74-99) mg/dL / Range/Units 04:14 WBC (4.50-10.00) 10*3/uL RBC (4.40-5.60) X 10*6/uL Hgb (13.0-17.0) g/dL Hct (39.6-50.0) % MPV (9.5-12.2) fL Immature Gran # (0.00-0.04) 10*3/uL Neutrophils # (1.80-7.70) 10*3/uL Monocytes # (0.20-1.00) 10*3/uL Sodium (137-145) mmol/L BUN/Creatinine Ratio 11.25 L (12.00-20.00) Ratio Glucose 125 H (74-99) mg/dL
--- NOTE | 2024-05-28 13:39 | MR ---
EXAMINATION TYPE: MR brain/cspine wo DATE OF EXAM: 05/28/2024 1:13 PM COMPARISON: CT brain 05/26/2024 CLINICAL INDICATION: Male, 83 years old with history of CVA, Lt arm weakness, possible cervical steno sis TECHNIQUE: Multiplanar, multisequence imaging of the brain and cervical spine is performed without IV contrast. FINDINGS: Motion degraded exam. The brito-white junctions, ventricular system, and cisterns appear unremarkable for patient's age and level atrophy. Diffuse age-appropriate cerebral volume loss. There are several foci of restricted dif fusion primarily within the brito-white junction of the right frontal and parietal lobes. Majority wit hin the right frontal lobe. There is corresponding T2/FLAIR hyperintensity. Consistent with acute/sub acute ischemia. Patchy areas of high T2/FLAIR signal intensity are seen within the supratentorial per iventricular and subcortical white matter. Midline structures show no abnormality. The susceptibility weighted images do not reveal any evidence for micro-hemorrhage. The bone marrow signal is within normal limits. The globes are unremarkable. Mucosal thickening of th e ethmoid sinuses. Trace right mastoid effusion. Alignment: The cervical vertebral bodies have preserved heights. Grade 1 anterolisthesis of C4 and C5 . Bones: Anterior osteophytosis from a CC 5 through T1. Type I Modic changes involving the end plates a round the C2-C3 disc. No abnormal STIR signal. Cord: The spinal cord is unremarkable with regards to their signal intensity and morphology. Discs: Multilevel disc desiccation is present. C2-C3: No significant disc pathology. The spinal canal is patent. Right facet arthropathy resulting in moderate right neural foraminal stenosis. The left neural foramen is patent. C3-C4: No significant disc pathology. The spinal canal is patent. Uncovertebral joint hypertrophy wi th bilateral facet arthropathy resulting in mild right and moderate left neural foraminal stenosis. C4-C5: Posterior disc osteophyte complex with mild effacement of the anterior thecal sac. No signific ant central canal stenosis. Uncovertebral joint hypertrophy with bilateral facet arthropathy resultin g in mild bilateral neural foraminal stenosis. C5-C6: Posterior disc ossify complex with mild effacement of the anterior thecal sac. This abuts the anterior spinal cord. Results in minimal central canal stenosis. No neural foraminal stenosis. C6-C7: Broad-based disc bulge with mild effacement of anterior thecal sac. No significant central can al stenosis. No neural foraminal stenosis. C7-T1: No significant disc pathology. The spinal canal is patent. No neural foraminal stenosis. Other: None. IMPRESSION: Motion degraded examination. 1. Several foci of restricted diffusion within the right frontoparietal lobes consistent with acute/ subacute ischemia. 2. Mild nonspecific white matter changes likely related to chronic small vessel ischemic disease. 3. Mild multilevel degenerative disc disease without significant central canal stenosis. Multilevel uncovertebral joint hypertrophy and facet arthropathy result in varying degrees of neural foraminal s tenosis of the upper cervical spine as described above. A [place] critical message alert has been initiated for Vinayak Qiu MD via the [employer] Critical Results System on 05/28/2024 1:35 PM. This message alert has been sent to Vinayak Qiu MD via the preferences provided by the clinician for the receipt of Radiology Critical Findings. Message ID [id number]. [facility], , 05/28/2024 1:36 PM
[2024-05-28 15:21] VITALS: BP 120/68; PULSE 98; RESP 22; TEMP 98.3
[2024-05-28] MEDS: CLOPIDOGREL 75 MG TAB PO SCH (16:44)
--- NOTE | 2024-05-28 20:21 | P.DS ---
Providers Date of admission: 05/27/24 14:10 Expected date of discharge: 05/28/24 Attending physician: Vinayak Qiu Consults: 05/26/24 19:40 Consult Physician Urgent Consulting Provider: Adalid Thapa Consult Reason/Comments: cva Do you want consulting provider notified?: Yes 05/26/24 23:25 Consult Physician Routine Consulting Provider: Rony Masterson Consult Reason/Comments: arrythmia Do you want consulting provider notified?: Yes Primary care physician: Stated None Hospital Course: Final diagnosis Left side weakness with unsteady gait and falls, MRI reveals CVA with several foci of restricted diffusion within the right frontal parietal lobes consistent with acute/subacute ischemia Mild multilevel degenerative disc disease without significant central canal stenosis Continued ongoing tobacco Hyperlipidemia GI prophylaxis DVT prophylaxis No code Discharge disposition Patient is being discharged in a stable condition with guarded prognosis to home. Patient will follow-up with John CACERES in the outpatient setting upon discharge. Patient is to continue with current cardiac medications and close outpatient follow-up with cardiology as scheduled. Patient to have event monitor on outpatient follow-up and discuss stress testing. Patient to follow-up with neurology outpatient as well. Repeat labs recommended. Total time taken is greater than 35 minutes. Hospital course This is a 83-year-old male who was recently admitted with falls and left-sided weakness noted to have CVA on MRI. Patient evaluated by neurology as well as cardiology and also underwent 2D echo which revealed an EF of 40 to 45% with mildly increased left ventricular diastolic diameter and moderately reduced global left ventricular systolic function basal inferior wall hypokinesia. Patient will need an event monitor outpatient for evaluation of atrial fibrillation. Patient has been cleared for discharge with close outpatient follow-up. Patient will continue on aspirin and Plavix along with statin therapy. Patient was evaluated by physical therapy and will be going home with home care. Patient does not want to go to rehab. Patient to establish with primary care provider in the outpatient setting as well. Please refer to other consultation notes for further HPI. Currently no reports of chest pain, shortness of breath, or palpitations. Patient is afebrile. No reports of nausea or vomiting and patient is tolerating diet. Patient will be discharged home today. Guarded prognosis and high risk for readmission as patient had significant stroke and continues with left-sided weakness. Concerns with high risk of falls and injury and lives alone. Patient was adamant he was going home and was agreeable to home care. Physical exam: Gen: This is a 83-year-old male who is awake, alert and oriented x 3, well- developed, elderly appearing HEENT: Head is atraumatic, normocephalic. Pupils equal, round. Sclerae is anicteric. NECK: Supple. No JVD. No lymphadenopathy. No thyromegaly. LUNGS: Clear to auscultation. No wheezes or rhonchi. No intercostal retractions. HEART: Regular rate and rhythm. No murmur. ABDOMEN: Soft. Bowel sounds are present. No masses. No tenderness. EXTREMITIES: No pedal edema. No calf tenderness. NEUROLOGICAL: Patient is awake, alert and oriented x3. Cranial nerves 2 through 12 are grossly intact. Left-sided weakness noted Please refer to medication reconciliation sheet for a list of medications. The impression and plan of care has been dictated by hSarri Washington, Nurse Practitioner as directed. Dr. Marco MD I have performed a history and examination and MDM of this patient, discussed the same with the dictator, and agree with the dictator's assessment and plan as written ,documented as a scribe. Based on total visit time, I have performed more than 50% of the visit. Patient Condition at Discharge: Fair Plan - Discharge Summary Discharge Rx Participant: No New Discharge Prescriptions: New Clopidogrel [Plavix] 75 mg PO DAILY #30 tab Aspirin 81 mg PO DAILY 30 Days #30 tab Atorvastatin [Lipitor] 40 mg PO HS #30 tab Discharge Medication List Aspirin 81 mg PO DAILY 30 Days #30 tab 05/28/24 [Rx] Atorvastatin [Lipitor] 40 mg PO HS #30 tab 05/28/24 [Rx] Clopidogrel [Plavix] 75 mg PO DAILY #30 tab 05/28/24 [Rx] Follow up Appointment(s)/Referral(s): Rene Kirby MD [Medical Doctor] - 1 Week (Need event monitor at follow up appointment.) Chanel Garrido MD [Medical Doctor] - 1 Week John Lester PAC [REFERRING] - 1-2 Days Patient Instructions/Handouts: Transient Ischemic Attack (DC), Self Care Measures After a Stroke (DC), Hyperlipidemia (DC) Activity/Diet/Wound Care/Special Instructions: Activity limited until follow-up Follow-up with neurology outpatient in 1 week Follow-up with cardiology outpatient in 1 week and follow-up on obtaining an event monitor for possible atrial fibrillation evaluation Patient to continue with aspirin and Plavix along with statin therapy on discharge Follow-up with primary care provider to establish Discharge Disposition: HOME WITH HOME HEALTH SERVICES
--- NOTE | 2024-05-29 09:45 | P.PN ---
Subjective Progress Note Date: 05/28/24 Patient was seen for a follow-up. Patient is doing much better. Patient's daughter was also present by the bedside. Patient is sitting comfortably in the recliner. Wants to go home desperately. Objective - Vital Signs Vital signs: Vital Signs Temp 98.3 F 05/28/24 15:00 Pulse 98 05/28/24 15:00 Resp 22 05/28/24 15:00 BP 120/68 05/28/24 15:00 Pulse Ox 97 05/28/24 15:00 FiO2 Intake & Output 05/27/24 05/28/24 05/28/24 18:59 06:59 18:59 Output Total 300 Balance -300 Output: Urine 300 Other: Voiding Method Toilet Urinal Toilet Urinal Urinal # Voids 4 2 3 - Exam Patient is alert and awake. Speech and language functions are normal. Cranial nerves are normal. On muscle strength testing, patient has left pronator drift about 10-15. The strength however is normal in the arms and legs. Sensory touch is equal with no neglect. No ataxia for [id number] testing. Patient was more faster with responding with the left upper limb. Finger tapping also slightly improved on the left side. Not as slow. - Labs CBC & Chem 7: 05/28/24 04:14 05/28/24 04:14 Labs: Abnormal Lab Results - Last 24 Hours (Table) 05/28/24 05/28/24 Range/Units 04:14 04:14 WBC 14.96 H (4.50-10.00) X 10*3/uL RBC 4.24 L (4.40-5.60) X 10*6/uL Hgb 12.7 L (13.0-17.0) g/dL Hct 38.8 L (39.6-50.0) % Immature Gran # 0.07 H (0.00-0.04) X 10*3/uL Neutrophils # 10.47 H (1.80-7.70) X 10*3/uL Monocytes # 1.59 H (0.20-1.00) X 10*3/uL BUN/Creatinine Ratio 11.25 L (12.00-20.00) Ratio Glucose 125 H (70-110) mg/dL Assessment and Plan Assessment: * Acute ischemic stroke with mild left arm weakness. * Recurrent falls in last 48 hours, likely due to above. * Hyperlipidemia * Hypertension * Tobacco use Plan: Patient is doing better. His left arm weakness has improved. MRI of the brain without contrast, revealed several foci of restricted diffusion within the right frontoparietal lobes, consistent with acute/subacute ischemia. Mild nonspecific white matter changes, likely related to chronic small vessel ischemic disease. I personally reviewed MRI agree with the findings. MRI of the cervical spine revealed mild multilevel degenerative disc disease without significant central canal stenosis. Multilevel uncovertebral joint hypertrophy and facet arthropathy resulting in varying degrees of neural foraminal stenosis of the upper cervical spine. I personally reviewed MRI, agree with the findings. 2-D echo revealed LV EF 40-45%. Moderately reduced global left and a systolic function. Basal inferior wall hypokinesia. Mild left atrial dilation. Carotid Doppler, revealed scattered mild to moderate atherosclerotic changes at the bilateral bifurcations. Slightly elevated velocities left ICA but without any hemodynamically significant stenosis on either side. Antegrade flow in both vertebral arteries. Fasting a.m. lipid panel cholesterol 223, LDL 152, HDL 38, triglycerides 158. Patient to be started on Lipitor 40 mg daily. Hemoglobin A1c 5.7 Optimize control of blood pressure. Patient to be placed on aspirin 81 mg and Plavix 75 mg for 30 days. Thereafter may stop Plavix and continue aspirin indefinitely. Recommend patient undergo 30 day event monitoring outpatient to rule out the spell atrial fibrillation. [facility] did [facility] to set up with event monitoring. Discussed with patient's daughter, who will have him follow up with [employer]. PT, OT, speech therapy has cleared. Recommend complete tobacco cessation. Neurologically clear for discharge. Recommend follow-up with neurologist outpatient.
== END 2024-05-28 18:22 | disposition home health service (06) | DRG 65 ==
LOC: EC 17:17 → 6NMEDSUR 19:40 → OBSVTOIN 05-27 14:10
PROVIDERS: ADMIT Family Medicine; ATTEND Family Medicine
DX: I63.9 Cerebral infarction, unspecified (principal); G81.94 Hemiplegia, unspecified affecting left nondominant side; Z66 Do not resuscitate; I10 Essential (primary) hypertension; E78.5 Hyperlipidemia, unspecified; I49.3 Ventricular premature depolarization; R26.9 Unspecified abnormalities of gait and mobility; M43.16 Spondylolisthesis, lumbar region; M51.369 Other intervertebral disc degeneration, lumbar region without mention of lumbar back pain or lower extremity pain; R29.6 Repeated falls; F17.200 Nicotine dependence, unspecified, uncomplicated; Z28.310 Unvaccinated for COVID-19; Z28.21 Immunization not carried out because of patient refusal; Z87.01 Personal history of pneumonia (recurrent)
CPT/HCPCS: 36415; 70450; 70551; 71046; 71250; 72100; 72141; 80048; 80053; 80061; 81001; 82550; 83036; 83735; 83880; 85025; 85610; 85730; 93005; 93306; 93880; 96360; 96361; 99285